=== PATIENT | female | born 1950 | race Caucasian/White ===

== ENCOUNTER 2020-09-26 17:15 | Outpatient (NON) | payer MEDICARE, SELFPAY ==
[2020-09-26 17:32] LABS: Basophils Absolute Auto 0.04 K/mm3 (0.00-0.10); Basophils Percent Auto 0.4 % (0.0-1.0); Eosinophils Absolute Auto 0.29 K/mm3 (0.02-0.50); Eosinophils Percent Auto 3.1 % (1.0-6.0); Hematocrit 39.5 % (35.0-42.0); Hemoglobin 12.6 g/dL (11.7-13.8); Immature Granulocyte Absolute 0.03 K/mm3 (0.00-0.00); Immature Granulocyte Percent A 0.3 % (0.0-0.0); Lymphocytes Absolute Auto 2.01 K/mm3 (1.10-4.50); Lymphocytes Percent Auto 21.4 % (18.0-42.0); Mean Corpuscular HGB Conc 31.9 g/dL (32.0-36.0); Mean Corpuscular Hemoglobin 27.2 pg (27.0-31.0); Mean Corpuscular Volume 85.3 fL (78.0-102.0); Mean Platelet Volume 10.9 fl (9.2-11.8); Monocytes Absolute Auto 0.48 K/mm3 (0.10-0.90); Monocytes Percent Auto 5.1 % (2.0-11.0); Neutrophils Absolute Auto 6.6 K/mm3 (1.7-7.2); Neutrophils Percent Auto 69.7 % (50.0-70.0); Platelet Count Result 301 K/mm3 (150-420); Red Blood Count 4.63 M/mm3 (4.20-5.40); Red Cell Distribution Width 13.2 % (11.6-14.4); White Blood Count 9.4 K/mm3 (4.8-10.8)
[2020-09-26 17:47] LABS: Alanine Aminotransferase 35 U/L (14-59); Albumin Level 3.7 g/dL (3.4-5.0); Alkaline Phosphatase 83 U/L (46-116); Anion Gap 9 mmol/L (8-16); Aspartate Amino Transferase 21 U/L (15-37); Bilirubin,Total 0.3 mg/dL (0.00-1.00); Blood Urea Nitrogen 14 mg/dL (7-18); Carbon Dioxide 33 mmol/L (21-32); Chloride 98 mmol/L (98-108); Estimated Glomerular Filt Rate 60; Glucose 248 mg/dL (70-99); Magnesium 1.4 mg/dL (1.8-2.4); Osmolality Calculated 298 mOsm/kg (285-295); Potassium 3.2 mmol/L (3.5-5.1); Sodium 140 mmol/L (136-145); Total Protein 7.3 g/dL (6.4-8.2)
[2020-09-26 17:53] LABS: Hemoglobin A1C 7.7 % (<5.7)
[2020-09-29 09:40] LABS: Vitamin D 25 Hydroxy 35 ng/mL (30-100)
== END 2020-09-26 17:16 ==
LOC: CHSLAB 17:17
PROVIDERS: Visit Provider Pathology Anatomic Pathology & Clinical Pathology
DX: M81.0 Age-related osteoporosis without current pathological fracture (principal); C50.919 Malignant neoplasm of unspecified site of unspecified female breast; R73.01 Impaired fasting glucose
CPT/HCPCS: 36415; 80053; 82306; 83036; 83735; 85025

== ENCOUNTER 2021-04-27 10:51 | Outpatient (NON) | payer MEDICARE, SELFPAY ==
[2021-04-27 11:13] LABS: Hemoglobin A1C 10.9 % (<5.7)
[2021-04-27 11:15] LABS: Alanine Aminotransferase 44 U/L (14-59); Albumin Level 3.6 g/dL (3.4-5.0); Alkaline Phosphatase 87 U/L (46-116); Anion Gap 10 mmol/L (8-16); Aspartate Amino Transferase 20 U/L (15-37); Bilirubin,Total 0.7 mg/dL (0.00-1.00); Blood Urea Nitrogen 12 mg/dL (7-18); Calcium 8.5 mg/dL (8.5-10.1); Carbon Dioxide 32 mmol/L (21-32); Chloride 93 mmol/L (98-108); Cholesterol 139 mg/dL (0-200); Estimated Glomerular Filt Rate > 60; Glucose 359 mg/dL (70-99); HDL Direct 39 mg/dL (40-60); LDL Cholesterol Calculated 77 mg/dL (<130); Magnesium 1.4 mg/dL (1.8-2.4); Osmolality Calculated 293 mOsm/kg (285-295); Potassium 3.2 mmol/L (3.5-5.1); Sodium 135 mmol/L (136-145); Total Protein 7.1 g/dL (6.4-8.2); Triglycerides 115 mg/dL (0-150)
== END 2021-04-27 10:52 | disposition home or self-care (01) ==
LOC: CHSLAB 10:53
PROVIDERS: Visit Provider Pathology Anatomic Pathology & Clinical Pathology
DX: C50.911 Malignant neoplasm of unspecified site of right female breast (principal); C50.912 Malignant neoplasm of unspecified site of left female breast; Z79.899 Other long term (current) drug therapy
CPT/HCPCS: 36415; 80053; 80061; 83036; 83735

== ENCOUNTER 2022-02-21 14:54 | Outpatient (NON) | payer MEDICARE, SELFPAY ==
[2022-02-21 15:03] LABS: Basophils Absolute Auto 0.06 K/mm3 (0.00-0.10); Basophils Percent Auto 0.5 % (0.0-1.0); Eosinophils Absolute Auto 0.21 K/mm3 (0.02-0.50); Eosinophils Percent Auto 1.9 % (1.0-6.0); Hematocrit 39.3 % (35.0-42.0); Hemoglobin 13.4 g/dL (11.7-13.8); Immature Granulocyte Absolute 0.05 K/mm3 (0.00-0.00); Immature Granulocyte Percent A 0.5 % (0.0-0.0); Lymphocytes Percent Auto 17.4 % (18.0-42.0); Mean Corpuscular HGB Conc 34.1 g/dL (32.0-36.0); Mean Corpuscular Hemoglobin 29.3 pg (27.0-31.0); Monocytes Absolute Auto 0.49 K/mm3 (0.10-0.90); Monocytes Percent Auto 4.5 % (2.0-11.0); Neutrophils Absolute Auto 8.2 K/mm3 (1.7-7.2); Neutrophils Percent Auto 75.2 % (50.0-70.0); Platelet Count Result 297 K/mm3 (150-420); Red Blood Count 4.57 M/mm3 (4.20-5.40); Red Cell Distribution Width 13.2 % (11.6-14.4)
[2022-02-21 15:12] LABS: Alanine Aminotransferase 49 U/L (14-59); Albumin Level 3.6 g/dL (3.4-5.0); Alkaline Phosphatase 81 U/L (46-116); Anion Gap 7 mmol/L (8-16); Aspartate Amino Transferase 35 U/L (15-37); Bilirubin,Total 0.5 mg/dL (0.00-1.00); Blood Urea Nitrogen 13 mg/dL (7-18); Calcium 9.2 mg/dL (8.5-10.1); Carbon Dioxide 34 mmol/L (21-32); Chloride 93 mmol/L (98-108); Estimated Glomerular Filt Rate 53; Glucose 338 mg/dL (70-99); Magnesium 1.3 mg/dL (1.8-2.4); Osmolality Calculated 291 mOsm/kg (285-295); Sodium 134 mmol/L (136-145)
[2022-02-21 15:14] LABS: Hemoglobin A1C 8.8 % (<5.7)
== END 2022-02-21 14:55 | disposition home or self-care (01) ==
LOC: CHSLAB 14:56
PROVIDERS: PCP Pathology Anatomic Pathology & Clinical Pathology; Visit Provider Pathology Anatomic Pathology & Clinical Pathology
DX: C50.919 Malignant neoplasm of unspecified site of unspecified female breast (principal); E83.42 Hypomagnesemia; E11.9 Type 2 diabetes mellitus without complications
CPT/HCPCS: 36415; 80053; 83036; 83735; 85025

== ENCOUNTER 2022-06-27 19:34 | Outpatient (CLI) | payer MEDICARE, SELFPAY ==
[2022-06-27 20:17] LABS: Influenza A QL RT-PCR Negative (Negative); Influenza B QL RT-PCR Negative (Negative); SARS-CoV-2 RNA PCR Negative (Negative)
== END 2022-06-27 19:35 | disposition home or self-care (01) ==
LOC: CHSLAB 19:36
PROVIDERS: PCP Pathology Anatomic Pathology & Clinical Pathology; Visit Provider Pathology Anatomic Pathology & Clinical Pathology
DX: R53.83 Other fatigue (principal); R11.10 Vomiting, unspecified; Z20.822 Contact with and (suspected) exposure to COVID-19
CPT/HCPCS: 87502; C9803; U0003; U0005

== ENCOUNTER 2022-12-07 17:47 | Outpatient (NON) | payer MEDICARE, SELFPAY ==
[2022-12-07 17:59] LABS: Add Urine Microscopic? YES; Appearance Urine Clear (Clear); Bilirubin Urine Negative (Negative); Blood Urine Negative (Negative); Color Urine Light Yellow (Yellow); Glucose Urine UA Negative (Negative); Ketones Urine Negative (Negative); Leukocyte Esterase Ur 2+ (Negative); Nitrate Urine Negative (Negative); Protein Urine Negative (Negative); Specific Grav Ur 1.025 (1.010-1.020); Urobilinogen Urine 0.2 mg/dL (0.2-1.0); pH Urine 5.5 (5.0-8.0)
[2022-12-07 18:01] LABS: RBC Urine None seen /hpf (0-2)
[2022-12-07 18:02] LABS: Bacteria Urine 3+ /hpf; Squamous Epithelial Cell Urine Few /hpf (Few); WBC Urine 31-50 /hpf (0-3)
== END 2022-12-07 17:48 | disposition home or self-care (01) ==
PROVIDERS: Visit Provider Pathology Anatomic Pathology & Clinical Pathology
DX: N39.0 Urinary tract infection, site not specified (principal)
CPT/HCPCS: 81001; 87077; 87086; 87088; 87186

== ENCOUNTER 2025-04-26 09:38 | Outpatient (NON) | payer MEDICARE, SELFPAY ==
[2025-04-26 10:00] LABS: Basophils Percent Auto 0.8 % (0.0-1.0); Eosinophils Absolute Auto 0.29 K/mm3 (0.02-0.50); Eosinophils Percent Auto 2.4 % (1.0-6.0); Hematocrit 41.4 % (35.0-42.0); Hemoglobin 13.5 g/dL (11.7-13.8); Immature Granulocyte Absolute 0.05 K/mm3 (0.00-0.00); Immature Granulocyte Percent A 0.4 % (0.0-0.0); Lymphocytes Absolute Auto 3.35 K/mm3 (1.10-4.50); Lymphocytes Percent Auto 27.2 % (18.0-42.0); Mean Corpuscular HGB Conc 32.6 g/dL (32-36); Mean Corpuscular Hemoglobin 27.6 pg (27.0-31.0); Mean Corpuscular Volume 84.5 fL (78.0-102.0); Mean Platelet Volume 10.4 fl (9.2-11.8); Monocytes Absolute Auto 0.62 K/mm3 (0.10-0.90); Neutrophils Absolute Auto 7.89 K/mm3 (1.70-7.20); Neutrophils Percent Auto 64.2 % (50.0-70.0); Platelet Count Result 350 K/mm3 (150-420); Red Cell Distribution Width 13.4 % (11.6-14.4); White Blood Count 12.3 K/mm3 (4.8-10.8)
[2025-04-26 10:39] LABS: Alanine Aminotransferase 23 U/L (6-35); Albumin Level 4.3 g/dL (3.5-5.1); Alkaline Phosphatase 74 U/L (38-126); Anion Gap 8 mmol/L (4-12); Aspartate Amino Transferase 31 U/L (14-36); Bilirubin,Total 0.6 mg/dL (0.2-1.3); Blood Urea Nitrogen 16 mg/dL (7-17); Calcium 9.8 mg/dL (8.4-10.2); Carbon Dioxide 29 mmol/L (22-30); Chloride 101 mmol/L (98-107); Cholesterol 137 mg/dL (0-200); Estimated Glomerular Filt Rate > 60; Glucose 97 mg/dL (65-110); HDL Direct 47 mg/dL; LDL Cholesterol Calculated 62 mg/dL (<130); Magnesium 1.4 mg/dL (1.6-2.3); Osmolality Calculated 287 mOsm/kg (285-295); Potassium 3.7 mmol/L (3.4-5.0); Sodium 138 mmol/L (137-145); Total Protein 7.4 g/dL (6.3-8.2); Triglycerides 140 mg/dL (<150)
[2025-04-26 10:53] LABS: Free T4 Free Thyroxine 1.27 ng/dL (0.78-2.19); Vitamin D 25 Hydroxy 40.5 ng/mL
[2025-04-26 11:10] LABS: Hemoglobin A1C 5.6 % (<5.7)
== END 2025-04-26 09:39 | disposition home or self-care (01) ==
LOC: CHSLAB 09:41
PROVIDERS: PCP Pathology Anatomic Pathology & Clinical Pathology; Visit Provider Pathology Anatomic Pathology & Clinical Pathology
DX: E55.9 Vitamin D deficiency, unspecified (principal); E11.9 Type 2 diabetes mellitus without complications; C50.911 Malignant neoplasm of unspecified site of right female breast
CPT/HCPCS: 36415; 80053; 80061; 82306; 83036; 83735; 84439; 84443; 85025

== ENCOUNTER 2025-10-08 15:57 | Outpatient (CLI) | payer MEDICARE, BC, SELFPAY ==
--- OUTSIDE RECORDS SUMMARY | 2025-10-08 16:04 | XMS_ITS | Clinical Summary ---
Author Organization [facility] Address [address] [place] [address] Care Team Providers Care Metal Grader Name Role Phone Freddy Membreno MD Unavailable [phone] Oscar Isidro MD Primary Care Provider [phone] Allergies Active Allergy Reactions Criticality Noted Date Comments Naproxen Sodium Rash Medium 10/29/2017 Nsaids (Non-Steroidal Anti-Inflammatory Drug) Other (See comments) Low 08/09/2020 Developed petechiae with aleve Medications MAGNESIUM CITRATE ORAL Take by mouth Active inhalational spacing device spacerIndications: Moderate persistent asthma without complication Use with inhaler 1 each 2 Active albuterol HFA (ProAir HFA) 90 mcg/actuation inhaler Inhale 2 puffs every 4 (four) hours as needed for wheezing or shortness of breath 8.5 g 5 4 Active Breyna 160-4.5 mcg/actuation inhaler Inhale 2 puffs 2 (two) times a day Rinse mouth with water after use. Do not swallow. 1 each 11 5 Active montelukast (SINGULAIR) 10 mg tablet Take 1 tablet (10 mg total) by mouth nightly 30 tablet 5 11/11/19 26 Active cholecalciferol (VITAMIN D-3) 2000 unit tabletIndications: Hypokalemia Take 1 tablet (2,000 Units total) by mouth daily 90 tablet 3 5 11/13/19 26 Active metFORMIN XR (GLUCOPHAGE XR) 500 mg 24 hr tabletIndications: Type 2 diabetes mellitus with hyperglycemia, without long-term current use of insulin (HCC) Take 2 tablets (1,000 mg total) by mouth 2 (two) times a day 180 tablet 5 Active ezetimibe (ZETIA) 10 mg tabletIndications: Hyperlipidemia, unspecified hyperlipidemia type Take 1 tablet (10 mg total) by mouth daily 30 tablet 5 11/27/19 26 Active blood-glucose meter miscIndications:Ty pe 2 diabetes mellitus with hyperglycemia, without long-term current use of insulin (HCC) Test daily up to 4 times daily or as directed by provider. Brand can be selected per pharmacy coverage and patient proference. 1 each 5 Active lancets 28 gauge miscIndications:Ty pe 2 diabetes mellitus with hyperglycemia, without long-term current use of insulin (HCC) Test daily up to 4 times daily or as directed by provider. Brand can be selected per pharmacy coverage and patient proference. 400 each 5 Active alcohol swabs pads, medicatedIndicatio ns:Type 2 diabetes mellitus with hyperglycemia, without long-term current use of insulin (HCC) Test daily up to 4 times daily or as directed by provider. Brand can be selected per pharmacy coverage and patient proference. 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, estrogen receptor positive (HCC),Use of aromatase inhibitors,Encount er for follow-up surveillance of breast cancer,lobsterman (current) use of aromatase inhibitors TAKE 1 TABLET DAILY 90 tablet 3 5 Active blood glucose diagnostic (Freestyle Insu[employer]x) stripIndications:T ype 2 diabetes mellitus with hyperglycemia, without long-term current use of insulin (HCC) Use to check glucose daily 90 each 5 Active tirzepatide (Mounjaro) 2.5 mg/0.5 mL pen injector injectionIndicatio ns:Type 2 diabetes mellitus with hyperglycemia, without long-term current use of insulin (HCC),Primary hypertension Inject 0.5 mL (2.5 mg total) under the skin once a week 2 mL 5 Active losartan (COZAAR) 25 mg tabletIndications: Type 2 diabetes mellitus with hyperglycemia, without long-term current use of insulin (HCC),Primary hypertension Take 0.5 tablets (12.5 mg total) by mouth daily 15 tablet 11 5 07/21/20 26 Active Active Problems Problem Noted Date Diagnosed Date Bone disorder 11/27/2024 lobsterman (current) use of aromatase inhibitors 11/27/2024 Hypertension, essential 11/18/2024 Overview (11/18/2024): Currently on HCTZ. BP Readings from Last 3 Encounters: 11/18/24 143/67 11/11/24 127/76 05/28/24 147/85 Today: 143/67 Recheck: 132/72 Assessment & Plan (11/18/2024 9:36 AM DIGITIZER OPERATOR): Continue HCTZ at prior dose of 25 mg daily Aneurysm of ascending aorta without rupture 11/04 Overview (11/18/2024): Stable dilatation of the ascending aorta measuring 4.1 x 4.2 cm. Shown on most recent Ct scan 05/2024 Assessment & Plan (11/18/2024 8:51 AM DIGITIZER OPERATOR): The aortic dilation has already shown stability. Would not be candidate for intervention until she approaches 5.0 cm. Given other co morbidities I suspect she will be imaged at least yearly. Will bring up imaging plan at next visit. 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 S/p bilateral mastectomy. Follows with oncology in survivorship clinic. 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 Symptoms well controlled. Assessment & Plan (11/18/2024 5:19 AM DIGITIZER OPERATOR): Continue Symbicort Montelukast per Pulmonology team. Encounters Date Type Department Care Team Description 10/08/2025 Orders Only [facility] [address] [place] [address] [place] [address] Rosy Ortiz MD Hair loss (Primary Dx) 07/21/2025 1:30 PM CDT Office Visit [facility] [address] [place] [address] [place] [address] Rosy Ortiz MD Type 2 diabetes mellitus with hyperglycemia, without long-term current use of insulin (HCC) (Primary Dx); Primary hypertension from Last 3 Months Immunizations Immunization Administration Dates Next Due Influenza, Quadrivalent, Hig h Dose, Preservative Free, Intrr 08/14/2023,08/16/2021,08/01/2020 Pfizer SARS-CoV-2 Monovalent Vaccination (12+ Yrs) PURPLE 02/02/2022,07/24/2021,11/10/2020,10/20 Pfizer Sars-Cov-2 Bivalent V accination (12+ YRS) 07/16/2022 Pneumococcal Conjugate PCV 13 07/23/2018 Pneumococcal Polysaccharide PPV23 08/12/2019 Surgical History Surgery Date Site/Laterality Comments MASTECTOMY 03/19/2018 Bilateral PORT REMOVAL 12/13/2021 N/A Medical History Medical History Date Comments Breast cancer (HCC) Hypertension High cholesterol History of bilateral breast cancer 11/14/2018 Family History Medical History Relation Name Comments Bladder Cancer Brother Prostate cancer Father Family histo ry of malignant neoplasm of prostate - (Added by TW Conv) Cancer Maternal Grandmother Throat cardiac Mother Stomach cancer Paternal Grandfather Relation Name Status Comments Brother Father Maternal Grandmother Mother Paternal Grandfather Social History Tobacco Use Types Packs/Day Years Used Date Smoking Tobacco: Never Passive Smoke Exposure: Never Smokeless Tobacco: Never Tobacco Cessation:Counseling Given: Not Answered Alcohol Use Standard Drinks/Week Comments No 0 (1 standard drink = 0.6 oz pur e alcohol) PHQ-2 Answer Date Recorded PHQ-2 Total Score (If total score is 3 or more points, staff should administer the PHQ-9) 0 03/19/2022 Hunger Vital Sign Answer Date Recorded Within the past 12 months, y ou worried that your food would run out before you got the money to buy more. Never true 11/18/19 25 Within the past 12 months, t he food you bought just didn't last and you didn't have money to get more. Never true 11/18/2024 Comments No Sex and Gender Information Value Date Recorded Sex Assigned at Not on file Legal Sex Female 11:03 AM DIGITIZER OPERATOR Gender Identity Female 07/21/2025 12:34 PM CDT Sexual Orientation Choose not to disclose 2024 12:34 PM CDT Last Filed Vital Signs Vital Sign Reading Time Taken Comments Blood Pressure 110/73 07/21/2025 1:23 PM CDT Pulse 74 07/21/2025 1:23 PM CDT Temperature 36.3 C (97.3 F) 07/21/2025 1:23 PM CDT Respiratory Rate 18 05/27/2025 8:27 AM CDT Oxygen Saturation 97% 05/27/2025 8:27 AM CDT Inhaled Oxygen Concentration - - Weight 73.9 kg (163 lb) 07/21/2025 1:23 PM CDT Height 165.1 cm (5' 5) 07/21/2025 1:23 PM CDT Body Mass Index 27.12 07/21/2025 1:23 PM CDT Plan of Treatment Health Maintenance Due Date Last Done Comments Colon Cancer Screening-Colonoscopy 1950 Hepatitis C Screening 1950 Dilated Eye Exam 1952 DTaP/Tdap/Td Vaccine (1 - Tdap) 1963 Hepatitis B Screening 1970 Zoster Vaccine (1 of 2) 1971 Well Visit 65+ 2017 Depression Screening 03/19/2023 03/19/2022 Fall Risk Assessment 03/19/2023 03/19/2022, 12/13/19 22 Foot Exam 03/19/2023 03/19/2022 Hemoglobin A1C 05/18/2025 11/18/2024, 11/05, 05/31/2022, Additional history exists Covid-19 Vaccine (2024-2 6 season) 2025 07/16/2022, 02/02/2022, 07/24/2021, Additional history exists Influenza Vaccine (#1) 2025 3, 08/16/2021, 08/01/2020 Lipid Panel 11/18/2025 11/18/2024 Albumin Creatinine Ratio, Urine 11/27/2025 5 eGFR 05/27/2026 05/27/2025, 11/05, 11/18/2024, Additional history exists Osteoporosis Screening-Bone Density Scan 05/24/2027 05/24/2025, 06/12/2023, 09/27/2021, Additional history exists Breast Cancer Screening-Mammogram Discontinued 017 Pneumococcal vaccine 65+ Completed 08/12/2019, 07/05 Procedures Procedure Name Priority Date/Time Associated Diagnosis Comments POCT GLUCOSE [id number] Routine 07/21/2025 1: 26 PM CDT Type 2 diabetes mellitus with hyperglycemia, without long-term current use of insulin (HCC) EGFR Routine 05/27/2025 7:43 AM CDT 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) DEXA AXIAL SKELETON BONE DENSITY 1 OR MORE SITES Schedule Routine, Read Routine (OP Routine) 05/24/2025 9:04 AM CDT 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, estrogen receptor positive (HCC) ALBUMIN CREATININE RATIO, URINE Routine 11/27/2024 2:45 PM DIGITIZER OPERATOR Type 2 diabetes mellitus with hyperglycemia, without long-term current use of insulin (HCC) HEMOGLOBIN A1C Routine 11/18/2024 10:22 AM DIGITIZER OPERATOR Type 2 diabetes mellitus with hyperglycemia, without long-term current use of insulin (HCC) LIPID PANEL Routine 11/18/2024 10:22 AM DIGITIZER OPERATOR Type 2 diabetes mellitus with hyperglycemia, without long-term current use of insulin (HCC) MAMMOGRAPHY, TOMOGRAPHY, BILATERAL Routine 10/24/2017 9:05 PM DIGITIZER OPERATOR from Last 3 Months or Most Recently Relevant to Health Maintenance Results * POCT glucose (07/21/2025 1:26 PM CDT) [facility] Glucose Blood, POC 186 Normal Fasting 70 - 100, Random <200 mg/dL Blood 07/21/2025 1:26 PM CDT us Rosy Ortiz MD POINT OF CARE TEST ORDERABLES F inal Result * eGFR (05/27/2025 7:43 AM CDT) [facility] eGFR >90 >=60 mL/min/1. 73 m2 Comment: Interpretive Data Reference Interval Normal >/= 90 mL/min/1.73m2 Mildly decreased* 60 - 89 mL/min/1.73m2 Mildly to moderately decreased 45 - 59 mL/min/1.73m2 Moderately to severely decreased 30 - 44 mL/min/1.73m2 Severely decreased 15 - 29 mL/min/1.73m2 Kidney Failure < 15 mL/min/1.73m2 *Relative to young adult level Estimated glomerular filtration rate is determined by the 2020 CKD-EPI equation recommended by the National Kidney Foundation (A Unifying Approach to GFR Estimation: Recommendations of the NKF-ASK Task Force on Reassessing the Inclusion of Race in Diagnosing Kidney Disease, JASN 2020). The CKD-EPI equation should not be used for patients with unstable renal function and has not been validated in children and those over 70. Current interpretive data was last reviewed 2021. Blood 05/27/2025 7:43 AM CDT 05/27/2025 7:49 AM CDT Freddy Membreno MD LAB BLOOD ORDERABLES Final Result Performing Organization Address City/State/[facility] Co de Phone Number [facility] Department [place] [address] * Dexa Axial Skeleton Bone Density 1 or 2 Site (05/24/2025 9:04 AM CDT) Anatomical Region Laterality Modality Body N/A Digital Radiogra phy 05/24/2025 9:13 AM CDT Impressions 05/24/2025 9:51 AM CDT 1. The bone mineral density of the lumbar spine is normal. 2. The bone mineral density of the left femoral neck is mildly decreased. 3. The bone mineral density of the left total hip is mildly decreased. 4. Overall, the above findings are diagnostic of low bone mass (osteopenia) by WHO criteria. 5. Calculation of fracture risk using the FRAX model is not appropriate in certain settings. It was not performed in this patient because the patient met the following condition(s): Interfering medications. General comments regarding interpretation of bone density measurements: A) In children, premenopausal woman and males under age 50 not at increased risk for fractures only Z-scores, not T-scores are used to indicate risk. A Z-score above -2.0 is defined as within the expected range for age and Z-score at or less than -2.0 is below the expected range for age. A Z-score below the expected range for age in a patient with recent fractures and/or chronic corticosteroid treatment is consistent with a diagnosis of osteoporosis. B) In post menopausal women and males over 50, comparison of the measured bone mineral density with the average value in young normal subjects (the T-score) has been found to be useful in assessing fracture risk. Fracture risk approximately doubles for each 1.0 standard deviation (SD) in individual's hip or spine bone mineral density is below the average value of young normal subjects. The World Health Organization (WHO) has defined T-scores of -1.0 to -2.5 as diagnostic of low bone mass (OSTEOPENIA), and T-scores of -2.5 or lower to be diagnostic of OSTEOPOROSIS, based on the site of lowest bone density. Note that there will be a change in reporting format and reference databases as patients move from the younger population (group A) to the older population (group B) The National Osteoporosis Foundation (www.nof.org) recommends adequate intake of calcium and vitamin D and regular weight-bearing exercise in all patients. They recommend pharmacologic treatment in postmenopausal women and men age 50 and older presenting with any of the followin) Osteoporosis, after appropriate evaluation to exclude secondary causes. 2) A hip or vertebral (clinical or radiographic) fracture, regardless of the bone density. 3) Low bone mass (Osteopenia) and one or more of: other prior fractures, secondary causes associated with high risk of fracture (such as glucocorticoid use or total immobilization), or computed high risk of fracture (10-yr probability of hip fracture >= 3% or a 10-yr probability of any major osteoporosis-related fracture >= 20% based on the [place].-adapted WHO algorithm), available at http://www.shef.ac.uk/FRAX). Dictated by: Montez Lucio M.D. The radiology attending physician has personally reviewed this study, and had reviewed and/or edited this written report and agrees with it. Electronically signed by: DO Werner Good 05/24/2025 9:51 AM CDT BONE DENSITOMETRY OF THE SPINE AND HIP DATE OF STUDY: 05/24/2025 HISTORY: 74-year-old postmenopausal woman with breast cancer and vitamin D deficiency. She is being treated with vitamin D and anastrozole. Evaluate bone mineral density. Additional risk factors for fracture: No additional risk factors. FINDINGS (SPINE): The bone mineral density of L1, L4 was assessed by dual-energy x-ray absorptiometry. L2 and L3 were excluded due to sclerotic degenerative changes. The average bone mineral density within this region is 1.087 gm/sq-cm. This is 2.7 standard deviations above the mean of the average bone mineral density for age- and gender-matched subjects (the Z-score). It is 0.5 standard deviations above the mean peak bone mineral density in young adults (the T-score). FINDINGS (FEMORAL NECK): The bone mineral density of the left femoral neck was assessed by dual-energy x-ray absorptiometry. The average bone mineral density within the femoral neck region is 0.692 gm/sq-cm. This is 0.5 standard deviations above the mean of the average bone mineral density for age- and gender-matched subjects (the Z-score). It is 1.4 standard deviations below the mean peak bone mineral density in young adults (the T-score). FINDINGS (TOTAL HIP): The bone mineral density of the left hip was assessed by dual-energy x-ray absorptiometry. The average bone mineral density within the total hip region is 0.790 gm/sq-cm. This is 0.4 standard deviations above the mean of the average bone mineral density for age- and gender-matched subjects (the Z-score). It is 1.2 standard deviations below the mean peak bone mineral density in young adults (the T-score). SUMMARY OF CURRENT RESULTS: Region BMD T-score Z-score AP Spine (L1, L4) 1.087 0.5 2.7 Femoral Neck (Left) 0.692 -1.4 0.5 Total Hip (Left) 0.790 -1.2 0.4 Procedure Note Zac Long DO - 05/24/2025 BONE DENSITOMETRY OF THE SPINE AND HIP DATE OF STUDY: 05/24/2025 HISTORY: 74-year-old postmenopausal woman with breast cancer and vitamin D deficiency. She is being treated with vitamin D and anastrozole. Evaluate bone mineral density. Additional risk factors for fracture: No additional risk factors. FINDINGS (SPINE): The bone mineral density of L1, L4 was assessed by dual-energy x-ray absorptiometry. L2 and L3 were excluded due to sclerotic degenerative changes. The average bone mineral density within this region is 1.087 gm/sq-cm. This is 2.7 standard deviations above the mean of the average bone mineral density for age- and gender-matched subjects (the Z-score). It is 0.5 standard deviations above the mean peak bone mineral density in young adults (the T-score). FINDINGS (FEMORAL NECK): The bone mineral density of the left femoral neck was assessed by dual-energy x-ray absorptiometry. The average bone mineral density within the femoral neck region is 0.692 gm/sq-cm. This is 0.5 standard deviations above the mean of the average bone mineral density for age- and gender-matched subjects (the Z-score). It is 1.4 standard deviations below the mean peak bone mineral density in young adults (the T-score). FINDINGS (TOTAL HIP): The bone mineral density of the left hip was assessed by dual-energy x-ray absorptiometry. The average bone mineral density within the total hip region is 0.790 gm/sq-cm. This is 0.4 standard deviations above the mean of the average bone mineral density for age- and gender-matched subjects (the Z-score). It is 1.2 standard deviations below the mean peak bone mineral density in young adults (the T-score). SUMMARY OF CURRENT RESULTS: Region BMD T-score Z-score AP Spine (L1, L4) 1.087 0.5 2.7 Femoral Neck (Left) 0.692 -1.4 0.5 Total Hip (Left) 0.790 -1.2 0.4 IMPRESSION: 1. The bone mineral density of the lumbar spine is normal. 2. The bone mineral density of the left femoral neck is mildly decreased. 3. The bone mineral density of the left total hip is mildly decreased. 4. Overall, the above findings are diagnostic of low bone mass (osteopenia) by WHO criteria. 5. Calculation of fracture risk using the FRAX model is not appropriate in certain settings. It was not performed in this patient because the patient met the following condition(s): Interfering medications. General comments regarding interpretation of bone density measurements: A) In children, premenopausal woman and males under age 50 not at increased risk for fractures only Z-scores, not T-scores are used to indicate risk. A Z-score above -2.0 is defined as within the expected range for age and Z-score at or less than -2.0 is below the expected range for age. A Z-score below the expected range for age in a patient with recent fractures and/or chronic corticosteroid treatment is consistent with a diagnosis of osteoporosis. B) In post menopausal women and males over 50, comparison of the measured bone mineral density with the average value in young normal subjects (the T-score) has been found to be useful in assessing fracture risk. Fracture risk approximately doubles for each 1.0 standard deviation (SD) in individual's hip or spine bone mineral density is below the average value of young normal subjects. The World Health Organization (WHO) has defined T-scores of -1.0 to -2.5 as diagnostic of low bone mass (OSTEOPENIA), and T-scores of -2.5 or lower to be diagnostic of OSTEOPOROSIS, based on the site of lowest bone density. Note that there will be a change in reporting format and reference databases as patients move from the younger population (group A) to the older population (group B) The National Osteoporosis Foundation (www.nof.org) recommends adequate intake of calcium and vitamin D and regular weight-bearing exercise in all patients. They recommend pharmacologic treatment in postmenopausal women and men age 50 and older presenting with any of the followin) Osteoporosis, after appropriate evaluation to exclude secondary causes. 2) A hip or vertebral (clinical or radiographic) fracture, regardless of the bone density. 3) Low bone mass (Osteopenia) and one or more of: other prior fractures, secondary causes associated with high risk of fracture (such as glucocorticoid use or total immobilization), or computed high risk of fracture (10-yr probability of hip fracture >= 3% or a 10-yr probability of any major osteoporosis-related fracture >= 20% based on the [place].-adapted WHO algorithm), available at http://www.shef.ac.uk/FRAX). Dictated by: Montez Lucio M.D. The radiology attending physician has personally reviewed this study, and had reviewed and/or edited this written report and agrees with it. Electronically signed by: Zac Long DO Freddy Membreno MD [facility] DXA PROCEDURES Final R esult * Albumin Creatinine Ratio, Urine (11/27/2024 2:45 PM DIGITIZER OPERATOR) Albumin Ur <12.0 mg/L Comment: Interpretive Data No reference range established. Current interpretive data was last revised 2019. Creatinine Ur 101.3 mg/dL [facility] Comment: Interpretive Data No reference range established. Current interpretive data was last revised 2019. Albumin Creatinine Ratio, Ur <12 1 - 29 mg/g [facility] Urine 11/27/2024 2:45 PM DIGITIZER OPERATOR 11/27/2024 3:23 PM DIGITIZER OPERATOR us Rosy Ortiz MD LAB URINE ORDERABLES Final Resu lt Performing Organization Address [facility] Co de Phone Number [facility] [place] [address] * (ABNORMAL) Hemoglobin A1c (11/18/2024 10:22 AM DIGITIZER OPERATOR) Hgb A1C 9.1(H) 4.0 - 5.6 % Estimated Average Glucose 214 mg/dL [facility] Comment: The ADA recommends reporting an estimated Average Glucose (eAG) with all Hemoglobin A1c results using the equation derived from a study of 507 normal and diabetic adults. Minority populations were underrepresented and children were not included. (Diabetes Care 2020; 43(S1): S66-S76). The eAG is not equivalent to a fasting glucose. Blood 11/18/2024 10:2 2 AM DIGITIZER OPERATOR 11/18/2024 11:32 AM DIGITIZER OPERATOR us Oscar Isidro MD LAB BLOOD ORDERABLES Final Res ult Performing Organization Address [facility] Co de Phone Number [facility] [place] [address] * (ABNORMAL) Lipid panel (11/18/2024 10:22 AM DIGITIZER OPERATOR) Cholesterol 150 30 - 199 mg/dL Comment: Interpretive Data Ages < or = 19 years Acceptable: <170 mg/dL Borderline high: 170-199 mg/dL High: >or= 200 mg/dL Ages > or = 20 years Desirable: <200 mg/dL Borderline high: 200-239 mg/dL High: >or= 240 mg/dL Literature References: 1. Expert Panel on Integrated Guidelines for Cardiovascular Health and Risk Reduction in Children and Adolescents. Pediatrics 2011;128:S213 2. NCEP Expert Panel. Circulation 2004;110:227 Current Interpretive Data was last revised on 2018. Triglycerides 170(H) <=149 mg/dL [facility] Comment: Interpretive Data Ages < or = 9 years Acceptable: <75 mg/dL Borderline high: 75-99 mg/dL High: >or= 100 mg/dL Ages 10 to 20 years Acceptable: <90 mg/dL Borderline high: 90-129 mg/dL High: >or= 130 mg/dL Ages > or = 20 years Desirable: <150 mg/dL Borderline high: 150-199 mg/dL High: 200-499 mg/dL Very high: >or= 499 mg/dL Literature References: 1. Expert Panel on Integrated Guidelines for Cardiovascular Health and Risk Reduction in Children and Adolescents. Pediatrics 2011;128:S213 2. NCEP Expert Panel. Circulation 2004;110:227 Current Interpretive Data was last revised on 2018. HDL 41 >=40 mg/dL [facility] Comment: Interpretive Data Ages < or = 19 years Acceptable: >45 mg/dL Borderline low: 40-45 mg/dL Low: <40 mg/dL Ages > or = 20 years Desirable: >or= 60 mg/dL Low: <40 mg/dL Literature References: 1. Expert Panel on Integrated Guidelines for Cardiovascular Health and Risk Reduction in Children and Adolescents. Pediatrics 2011;128:S213 2. NCEP Expert Panel. Circulation 2004;110:227 Current Interpretive Data was last revised on 2018. LDL, calculated 80 <=129 mg/dL [facility] Comment: Interpretive Data Ages < or = 19 years Acceptable: <110 mg/dL Borderline high: 110-129 mg/dL High: >or= 130 mg/dL Ages > or = 20 years Optimal: <100 mg/dL Near optimal: 100-129 mg/dL Borderline high: 130-159 mg/dL High: >160 mg/dL Calculated using the Arpit LDL-C estimating equation. This equation was implemented on 2024. Prior to this date LDL-C was estimated using the Friedewald equation. Literature References: 1. Expert Panel on Integrated Guidelines for Cardiovascular Health and Risk Reduction in Children and Adolescents. Pediatrics 2011;128:S213 2. NCEP Expert Panel. Circulation 2004;110:227 3. Arpit Davalos al. AYAD Cardiol. 2020 March 04;5(5):540-548. doi: 10.1001/jamacardio.2020.0013 Current Interpretive Data was last revised on 2024. Non-HDL Cholesterol 109 mg/dL [facility] Comment: Interpretive Data Ages < or = 19 years Acceptable: <120 mg/dL Borderline high: 120-144 mg/dL High: >145 mg/dL Ages > or = 20 years When triglycerides are >200 mg/dL, Non-HDL cholesterol is a secondary target of therapy with treatment goals that are 30 mg/dL greater than the LDL cholesterol target. Literature References: 1. Expert Panel on Integrated Guidelines for Cardiovascular Health and Risk Reduction in Children and Adolescents. Pediatrics 2011;128:S213 2. NCEP Expert Panel. Circulation 2004;110:227 Current Interpretive Data was last revised on 2018. Chol/HDL ratio 4 [facility] Blood 11/18/2024 10:2 2 AM DIGITIZER OPERATOR 11/18/2024 11:32 AM DIGITIZER OPERATOR us Oscar Isidro MD LAB BLOOD ORDERABLES Final Res ult [facility] Department [place] [address] * MAMMOGRAPHY, TOMOGRAPHY, BILATERAL (10/24/2017 9:05 PM DIGITIZER OPERATOR) Anatomical Region Laterality Modality Breast Bilateral Mammography 10/24/2017 9:05 PM DIGITIZER OPERATOR Narrative 10/24/2017 10:48 PM DIGITIZER OPERATOR MORENO ROBERTS M.D. FINAL REPORT ACC# Date Time Exam [id number] Oct 24, 2017 16:36:00 [facility] [id number] Breast US unilateral, ltd L [id number] Oct 24, 2017 16:36:00 [facility] [address]01 Breast US unilateral, ltd R [id number] Oct 24, 2017 15:05:00 [facility] [address]223 Diag Mamm, inc CAD, bilat Technologist(s): Sosa Pierce; ; [id number] Oct 24, 2017 15:05:00 [facility] 11439 Dig Breast Heladio Michael Technologist(s): Sosa Pierce; ; EXAMINATION: BILATERAL DIGITAL DIAGNOSTIC MAMMOGRAM INCLUDING CAD AND DIGITAL BREAST TOMOSYNTHESIS; BILATERAL BREAST AND AXILLARY SONOGRAM HISTORY: 66-year-old woman with biopsy-proven invasive carcinoma bilaterally and a biopsy-proven axillary lymph node metastasis in the right axilla. Additional imaging recommended to determine disease extent. COMPARISON: 10/14/2017 TECHNIQUE: Full field digital mammographic views of BOTH breasts were performed, including computer aided detection (CAD) and digital breast tomosynthesis (DBT). Directed ultrasound evaluation of BOTH breasts and axillae was performed. BREAST PARENCHYMAL COMPOSITION: The breasts are heterogenously dense, which may obscure small masses. MAMMOGRAM FINDINGS: In the lower outer left breast there is an oval mass with circumscribed and indistinct margins with an associated biopsy site marker. This measures 26 mm in greatest diameter and is consistent with the biopsy-proven invasive carcinoma. In the upper outer right breast at approximately 11:00 there is an irregular mass with spiculated margins and associated pleomorphic calcifications. This measures 32 mm in greatest diameter. A single abnormal low axillary lymph node is visualized incompletely. No biopsy marker is seen at the lymph node site. SONOGRAM FINDINGS: Targeted left breast ultrasound at 4:00 8 cm from nipple demonstrates a 31 x 19 x 25 mm irregular hypoechoic mass with indistinct margins and thick echogenic rim. This correlates with the malignant mammographic mass. 4 normal-appearing lymph nodes were visualized in the left axilla. 2 had diffuse thickening of 3 mm. Ultrasound of the known malignancy in the upper central right breast demonstrates a 47 mm x 27 mm x 22 mm irregular hypoechoic mass with indistinct margins. This appears to have ductal extension. There are abnormal dilated ducts at 11:30 o'clock 1 to 3 cm from the nipple with internal vascularity likely DCIS. Additionally there is a separate mass in the upper outer right breast at approximately 10:00 7 cm the nipple measuring 19 x 16 x 16 mm with indistinct margins. This has a high suspicion appearance of multicentric malignancy. IMPRESSION: Probable multicentric malignancy in the upper central and upper outer right breast. In discussion with the patient she is intending mastectomy. Should BCT be considered then ultrasound-guided core needle biopsy of the separate mass at 10:00 in the right breast is recommended. Of note the primary malignancy in the right breast appears locally advanced and with probable duct extension to the nipple. Biopsy-proven unifocal malignancy in the left breast. 1 metastatic node in the right axilla and no evidence of axillary metastases and left axilla. OVERALL FINAL ASSESSMENT: BI-RADS Category 4C: Suspicious. High suspicion for malignancy. Clinical management with Dr. Dumont is recommended. See above recommendation regarding biopsy of the 2nd mass in the right breast should BCT be considered. Additionally the patient may benefit from breast MRI. Electronically signed by: Mroeno Roberts M.D. Requested By: Page Dumont M.D. Dictated By: MORENO ROBERTS M.D. on Oct 24 2017 4:46P This document has been electronically signed by: MORENO ROBERTS M.D. on Oct 24 2017 4:46P [id number] ROBERTS M.D. FINAL REPORT Attending: PAGE DUMONT Requesting: Page Dumont Requesting Fax: Attending Fax: Attending ID: [id number] Requesting ID: [id number] Report To 1 ID: [id number] Report To 1 Name: , Report To 1 FAX: NextGen Order #: Procedure Note Miscellaneous, Not In File - 10/24/2017 MORENO ROBERTS M.D. FINAL REPORT ACC# Date Time Exam [id number] Oct 24, 2017 16:36:00 [facility] [id number] Breast US unilateral, ltd L [id number] Oct 24, 2017 16:36:00 [facility] [address]83[address] Breast US unilateral, ltd R [id number] Oct 24, 2017 15:05:00 [facility] [address] Diag Mamm, inc CAD, bilat Technologist(s): Sosa Pierce; ; [id number] Oct 24, 2017 15:05:00 [facility] [address] Dig Breast Heladio Michael Technologist(s): Sosa Pierce; ; EXAMINATION: BILATERAL DIGITAL DIAGNOSTIC MAMMOGRAM INCLUDING CAD AND DIGITAL BREAST TOMOSYNTHESIS; BILATERAL BREAST AND AXILLARY SONOGRAM HISTORY: 66-year-old woman with biopsy-proven invasive carcinoma bilaterally and a biopsy-proven axillary lymph node metastasis in the right axilla. Additional imaging recommended to determine disease extent. COMPARISON: 10/14/2017 TECHNIQUE: Full field digital mammographic views of BOTH breasts were performed, including computer aided detection (CAD) and digital breast tomosynthesis (DBT). Directed ultrasound evaluation of BOTH breasts and axillae was performed. BREAST PARENCHYMAL COMPOSITION: The breasts are heterogenously dense, which may obscure small masses. MAMMOGRAM FINDINGS: In the lower outer left breast there is an oval mass with circumscribed and indistinct margins with an associated biopsy site marker. This measures 26 mm in greatest diameter and is consistent with the biopsy-proven invasive carcinoma. In the upper outer right breast at approximately 11:00 there is an irregular mass with spiculated margins and associated pleomorphic calcifications. This measures 32 mm in greatest diameter. A single abnormal low axillary lymph node is visualized incompletely. No biopsy marker is seen at the lymph node site. SONOGRAM FINDINGS: Targeted left breast ultrasound at 4:00 8 cm from nipple demonstrates a 31 x 19 x 25 mm irregular hypoechoic mass with indistinct margins and thick echogenic rim. This correlates with the malignant mammographic mass. 4 normal-appearing lymph nodes were visualized in the left axilla. 2 had diffuse thickening of 3 mm. Ultrasound of the known malignancy in the upper central right breast demonstrates a 47 mm x 27 mm x 22 mm irregular hypoechoic mass with indistinct margins. This appears to have ductal extension. There are abnormal dilated ducts at 11:30 o'clock 1 to 3 cm from the nipple with internal vascularity likely DCIS. Additionally there is a separate mass in the upper outer right breast at approximately 10:00 7 cm the nipple measuring 19 x 16 x 16 mm with indistinct margins. This has a high suspicion appearance of multicentric malignancy. IMPRESSION: Probable multicentric malignancy in the upper central and upper outer right breast. In discussion with the patient she is intending mastectomy. Should BCT be considered then ultrasound-guided core needle biopsy of the separate mass at 10:00 in the right breast is recommended. Of note the primary malignancy in the right breast appears locally advanced and with probable duct extension to the nipple. Biopsy-proven unifocal malignancy in the left breast. 1 metastatic node in the right axilla and no evidence of axillary metastases and left axilla. OVERALL FINAL ASSESSMENT: BI-RADS Category 4C: Suspicious. High suspicion for malignancy. Clinical management with Dr. Dumont is recommended. See above recommendation regarding biopsy of the 2nd mass in the right breast should BCT be considered. Additionally the patient may benefit from breast MRI. Electronically signed by: Moreno Roberts M.D. Requested By: Page Dumont M.D. Dictated By: MORENO ROBERTS M.D. on Oct 24 2017 4:46P This document has been electronically signed by: MORENO ROBERTS M.D. on Oct 24 2017 4:46P [id number] ROBERTS M.D. FINAL REPORT Attending: PAGE DUMONT Requesting: Page Dumont Requesting Fax: Attending Fax: Attending ID: [id number] Requesting ID: [id number] Report To 1 ID: [id number] Report To 1 Name: , Report To 1 FAX: NextGen Order #: Page Dumont MD IMG MAMMO PROCEDURES Final Result from Last 3 Months or Most Recently Relevant to Health Maintenance Insurance MEDICARE [facility] MEDICARE SUPPLEMENT MEDICARE [facility] MEDICARE [facility] MEDICARE SUPPLEMENT Care Teams Metal Grader Relationship Specialty Start Date End Date Oscar Isidro MD [address] [id number] PCP - General Internal Medicine 11/18/24 Freddy Membreno MD Medical Oncologist/Project Development Manager Medical Oncology 06/04/21
--- OUTSIDE RECORDS SUMMARY | 2025-10-08 16:04 | XMS_ITS ---
Author Organization [facility] Address [address] [place] [address] Care Team Providers Care Street Light Servicer Name Role Phone Freddy Membreno MD Unavailable [phone] Oscar Isidro MD Primary Care Provider [phone] Active Problems Problem Noted Date Diagnosed Date Bone disorder 11/27/2024 assisted (current) use of aromatase inhibitors 11/27/2024 Hypertension, essential 11/18/2024 Overview (11/18/2024): Currently on HCTZ. BP Readings from Last 3 Encounters: 11/18/24 143/67 11/11/24 127/76 05/28/24 147/85 Today: 143/67 Recheck: 132/72 Assessment & Plan (11/18/2024 9:36 AM FINANCIAL DATA ANALYST): Continue HCTZ at prior dose of 25 mg daily Aneurysm of ascending aorta without rupture 11/04 Overview (11/18/2024): Stable dilatation of the ascending aorta measuring 4.1 x 4.2 cm. Shown on most recent Ct scan 05/2024 Assessment & Plan (11/18/2024 8:51 AM FINANCIAL DATA ANALYST): The aortic dilation has already shown stability. Would not be candidate for intervention until she approaches 5.0 cm. Given other co morbidities I suspect she will be imaged at least yearly. Will bring up imaging plan at next visit. Asthma 11/11/2024 Type 2 diabetes mellitus with hyperglycemia 03/04 Assessment & Plan (11/18/2024 5:22 AM FINANCIAL DATA ANALYST): A1c toda Morbid (severe) obesity due to [...] clinic. Assessment & Plan (11/18/2024 5:26 AM FINANCIAL DATA ANALYST): Continued management per oncology Dehydration 01/09/2019 emt intermediate (current) use of aromatase inhibitors 01/08/2019 Acquired [...] Staging:Clinical:Stage IIIA(T3, N1, M0) - Signed by Amrani Coleman MD on 04/11/2018 SOB (shortness of breath) Moderate persistent asthma without complication Overview (11/18/2024): Follows with pulmonology at the [facility]. Symptoms well controlled. Assessment & Plan (11/18/2024 5:19 AM FINANCIAL DATA ANALYST): Continue Symbicort Montelukast per Pulmonology team. Current Treatment and Therapy Plans Zoledronic Acid Every 26 Weeks* Plan Start Date:05/27/2025 Plan Provider:Freddy Membreno MD Linked Problems Carcinoma of overlapping sit es of right breast in female, estrogen receptor positive (HCC)Bone disorderLong term (current) use of aromatase inhibitors Treatment Medications Current Day (Day 1 , Cycle 2 - Planned for 11/25/2025) Next Day (Day 1, Cycle 3 - Planned for 05/26/2026) No medications scheduled. No medications schedul ed. No medications scheduled. Past Treatment and Therapy Plans Oncology Chemotherapy Treatment Plan Name Start Date Discontinue Date Treatment Medications Discontinue Reason Plan Provider Cycles TCHP: (DOCEtaxel / CARBOplatin / Trastuzumab / Pertuzumab) 21 Day Cycles - Breast 8 11/26/2018 CARBOplatin (PARAPLATIN)DOCEt iraj (TAXOTERE)pertuzu mab (PERJETA)pertuzum ab (PERJETA) IVPBtrastuzumab (HERCEPTIN)trastu zumab (HERCEPTIN) IVPB Therapy Complete Keaton Parra MD 18 of 18 cycles completed Oncology Supportive Care Therapy Plan Plan Name Start Date Discontinue Date Treatment Medications Discontinue Reason Plan Provider ELECTROLYTE REPLACEMENT 04/11/2018 11/29/2020 No medications scheduled. Therapy Complete Keaton Parra MD Oncology Treatment (2) Plan Name Start Date Discontinue Date Treatment Medications Discontinue Reason Plan Provider Cycles Neratinib PO 28 day - Breast 9 11/24/2019 neratinib (NERLYNX) Therapy Complete Keaton Parra MD 12 of 22 cycles completed Specialty Infusion Treatment 2 Plan Name Start Date Discontinue Date Treatment Medications Discontinue Reason Plan Provider DENOSUMAB (PROLIA) INJECTION 11/25/2018 11/27/2024 No medications scheduled. Provider Discretion Freddy Membreno MD Lifetime Dose Tracking * Chemical Lifetime Dose Automatic Entry Manual Entr y Fluoro Time 0.1 minutes 0.1 minutes 0 minutes DLP 14,136 mGycm 14,136 mGycm 0 mGycm
--- OUTSIDE RECORDS SUMMARY | 2025-10-08 16:05 | XMS_ITS | Encounter Summary ---
Author Organization [facility] Address [address] [place] [address] Care Team Providers Care Personal Security Specialist Name Role Phone Freddy Membreno MD Unavailable [phone] Oscar Isidro MD Primary Care Provider [phone] Encounter Details Date Type Department Care Team (Late st Contact Info) Description 05/20/2025 Telephone [facility] [place] [address] Debbie Carr, RT Social History Tobacco Use Types Packs/Day Years Used Date Smoking Tobacco: Never Smokeless Tobacco: Never Alcohol Use Standard Drinks/Week Comments No 0 [...] on file Legal Sex Female 11: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
--- OUTSIDE RECORDS SUMMARY | 2025-10-08 16:05 | XMS_ITS | Encounter Summary ---
Author Organization [facility] Address [address] [place] [address] Phone Care Team Providers Care Repairer Finished Metal Name Role Phone Freddy Membreno MD Unavailable [phone] Oscar Isidro MD Primary Care Provider [phone] Reason for Referral * Consultation (Routine) - Authorized Specialty Diagnoses / Procedures Referred By Mike kaye Referred To Contact Dermatology Diagnoses Hair loss Rosy Ortiz MD [address] [place] [address] Phone: tel: fax: [facility] Dermatology [address] [facility] [address] [place] [address] Phone: tel: fax: Referral ID Status Reason Start Date Expiration Date Visits Requested Visits Authorized [id number] Authorized Specialty Services Required 10/08/2025 11/07/2026 1 1 Question Answer Please select the performing region: [facility] (All Locations) [[id number]] Please select the performing department: [facility] DERM [facility] 502 [[id number]] # of visits: 1 Comments Hair loss ER Encounter Details Date Type Department Care Team (Late st Contact Info) Description 10/08/2025 Orders Only [facility] Medicine Endocrinology Metabolism and Lipid [address] [facility] Advanced Medicine 13th [place] [address] [place] [address] Rosy Ortiz MD [address] [place] [address] Hair loss (Primary Dx) Social History Tobacco Use Types Packs/Day Years Used Date Smoking Tobacco: Never Passive Smoke Exposure: Never Smokeless Tobacco: Never Alcohol Use Standard [...] on file Legal Sex Female 11:03 AM IRONER Gender Identity Female 07/21/2025 12:34 PM CDT Sexual Orientation Choose not to disclose 2024 12:34 PM CDT documented as of this encounter Progress Notes * Rosy Ortiz MD - 10/08/2025 12:25 PM CST Sending in referral to derm for hair loss ER documented in this encounter Plan of Treatment Scheduled Referrals Name Type Priority Associated Diagnoses Order Schedule Ambulatory referral to Dermatology Outpatient Referral Routine Hair loss Expected: 10/22/2025 (Approximate), Expires: 10/08/2026 documented as of this encounter Visit Diagnoses Diagnosis Hair loss- Primary Unspecified alopecia documented in this encounter Care Teams Repairer Finished Metal Relationship Specialty Start Date End Date Oscar Isidro MD [address] [place] [address] PCP - General Internal Medicine 11/18/24 Freddy Membreno MD Medical Oncologist/Insecticide Expert Medical Oncology 06/04/21 documented as of this encounter
[2025-10-08 16:43] LABS: Hemoglobin A1C 5.8 % (<5.7)
[2025-10-08 16:48] LABS: Magnesium 1.4 mg/dL (1.6-2.3); Potassium 4.1 mmol/L (3.4-5.0)
[2025-10-08 17:05] LABS: Free T4 Free Thyroxine 1.10 ng/dL (0.78-2.19)
[2025-10-08 17:19] LABS: Thyroid Stimulating Hormone 0.758 uIU/mL (0.465-4.680)
== END 2025-10-08 15:58 | disposition home or self-care (01) ==
PROVIDERS: PCP Pathology Anatomic Pathology & Clinical Pathology; Visit Provider Pathology Anatomic Pathology & Clinical Pathology
DX: E11.9 Type 2 diabetes mellitus without complications (principal); L65.9 Nonscarring hair loss, unspecified; Z92.21 Personal history of antineoplastic chemotherapy
CPT/HCPCS: 36415; 83036; 83735; 84132; 84439; 84443